=== PATIENT | female | born 1965 | race Caucasian/White ===

== ENCOUNTER 2018-08-28 11:23 | Emergency (ER) | payer OTHER ==
[2018-08-28 11:26] VITALS: BMI 32.3
[2018-08-28 11:36] VITALS: RESP 16; TEMP 98; O2SAT 98
--- NOTE | 2018-08-28 11:56 | C.PDOC ---
History Of Present Illness 52 yo female w/PMHx of IDDM come in for evaluation of Right eye floaters developed for past 2 weeks associated with intermittent headache. Pt denies severe headache, blurry vision, eye pain, redness, curtains falling, blind spots, denies dizziness, weakness, focal deficits, CP, SOB, dyspnea, diaphoresis, palpitation, abd. pain, V/D, weakness, sensory or vascular deficits to B/L UEs and LEs. Pt denies previous opht examination, wear glasses, no use of eye contacts. Ambulatory , not in any apparent distress. Time Seen by Provider: 08/28/18 11:29 Chief Complaint (Nursing): Eye Problem History Per: Patient Past Medical History Reviewed: Historical Data, Nursing Documentation, Vital Signs Vital Signs: Last Vital Signs Temp 98 F 08/28/18 11:35 Pulse 87 08/28/18 11:35 Resp 16 08/28/18 11:35 BP 157/83 H 08/28/18 11:35 Pulse Ox 98 08/28/18 11:35 - Medical History PMH: Diabetes, HTN Family History: States: No Known Family Hx - Social History Hx Tobacco Use: No Hx Alcohol Use: No Hx Substance Use: No - Immunization History Hx Tetanus Toxoid Vaccination: No Hx Influenza Vaccination: No Hx Pneumococcal Vaccination: No Review Of Systems Except As Marked, All Systems Reviewed And Found Negative. Constitutional: Negative for: Fever, Chills Eyes: Positive for: Vision Change. Negative for: Pain, Eyelid Inflammation, Redness ENT: Negative for: Ear Discharge, Nose Discharge Cardiovascular: Negative for: Chest Pain, Palpitations, Edema, Light Headedness Respiratory: Negative for: Cough, Shortness of Breath, Wheezing Gastrointestinal: Negative for: Nausea, Vomiting, Abdominal Pain, Diarrhea Genitourinary: Negative for: Dysuria, Incontinence Musculoskeletal: Negative for: Neck Pain, Back Pain Neurological: Positive for: Headache. Negative for: Weakness, Numbness, Altered Mental Status, Dizziness Physical Exam - Physical Exam Appears: Well, Non-toxic, No Acute Distress Skin: Normal Color, Warm, Dry, No Rash Head: Normacephalic Eye(s): bilateral: PERRL, EOMI (no pain or limitation on extraocular eye movement) Ear(s): Bilateral: Normal Nose: No Flaring, No Discharge Oral Mucosa: Moist Tongue: Normal Appearing Lips: Normal Appearing Throat: No Erythema, No Drooling Neck: Trachea Midline, Supple Cardiovascular: Rhythm Regular, No Murmur, No JVD Respiratory: No Decreased Breath Sounds, No Accessory Muscle Use, No Stridor, No Wheezing Gastrointestinal/Abdominal: Soft, No Tenderness, No Distention, No Guarding, No Rebound Extremity: Normal ROM, No Pedal Edema Neurological/Psych: Oriented x3, Normal Speech, Normal Cognition, Cerebellar Signs, Normal Motor, Normal Sensation, Normal Reflexes ED Course And Treatment O2 Sat by Pulse Oximetry: 98 Pulse Ox Interpretation: Normal - CT Scan/US CT head w/o contrast Other Rad Studies (CT/US): Radiology Report Reviewed CT/US Interpretation: IMPRESSION: 1. No acute intracranial abnormality. If there is a persistent focal neurologic deficit and an ongoing clinical concern for acute infarction, an MRI of the brain without intravenous contrast would be a more sensitive modality for evaluation of hyperacute/acute ischemic infarction. 2. 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 3. Severe chronic microangiopathic changes and moderate age-related global parenchymal volume loss. Progress Note: Pt was OBS in ED for 2 hours and reamined stable. On re-eval, pt is afebrile, hemodynamicaly stable. non-toxic. Neurologicaly intact. Imagings review and appears without acute abnormalities. Case discussed with [id number] and appoitment for NOW scheduled for re-eval at clinic. results review with patient, agrees with plan to F/U with now. case discusse [facility] , agrees with plan. Disposition Counseled Patient/Family Regarding: Studies Performed, Diagnosis, Need For Followup - Disposition Referrals: Lang Walsh [Staff Provider] - Disposition: HOME/ ROUTINE Disposition Time: 13:10 Condition: STABLE Additional Instructions: Follow up with senior clerk NOW for re-evaluation Instructions: Diabetic Retinopathy, Floaters in the Eye Forms: [employer] (Omani) - Clinical Impression Clinical Impression: Vitreous floaters of right eye, Diabetes
--- NOTE | 2018-08-28 12:55 | CT ---
Date of service: 08/28/2018 PROCEDURE: CT HEAD WITHOUT CONTRAST. HISTORY: Right eye pain, floaters COMPARISON: None available. TECHNIQUE: Axial computed tomography images were obtained through the head/brain without intravenous contrast. Radiation dose: Total exam DLP = 1125.27 mGy-cm. This CT exam was performed using one or more of the following dose reduction techniques: Automated exposure control, adjustment of the mA and/or kV according to patient size, and/or use of iterative reconstruction technique. FINDINGS: HEMORRHAGE: No acute parenchymal, subarachnoid or extra-axial hemorrhage.. BRAIN: No mass effect or edema. No significant chronic microvascular ischemic changes. Mild age-appropriate volume loss. VENTRICLES: Unremarkable. No hydrocephalus. CALVARIUM: Unremarkable. PARANASAL SINUSES: Frontal sinuses are atretic.. Remaining visualized paranasal sinuses are well-developed. No evidence of to suggest acute sinusitis... MASTOID AIR CELLS: Unremarkable as visualized. No inflammatory changes. OTHER FINDINGS: None. IMPRESSION: No acute intracranial hemorrhage.
[2018-08-28 13:51] VITALS: BP 142/85; PULSE 78
== END 2018-08-28 13:50 | disposition home or self-care (01) ==
LOC: C.ER 11:23
DX: H43.391 Other vitreous opacities, right eye (principal); E11.9 Type 2 diabetes mellitus without complications; Z79.4 Long term (current) use of insulin

== ENCOUNTER 2018-11-28 13:04 | Outpatient (CLI) | payer OTHER | END 2018-11-28 13:05 | disposition home or self-care (01) | LOC: C.MAMMO 13:04 | DX: Z12.31 Encounter for screening mammogram for malignant neoplasm of breast (principal) ==

== ENCOUNTER 2018-11-28 14:04 | Emergency (ER) | payer OTHER ==
[2018-11-28 14:04] VITALS: BMI 32.3
[2018-11-28 14:32] VITALS: BP 140/92; PULSE 85; RESP 18; TEMP 98.5; O2SAT 99
--- NOTE | 2018-11-28 14:48 | C.PDOC ---
History Of Present Illness 53 y/o female pt presents to the ER requesting an evaluation of her injured left foot that occurred 2 weeks ago. Pt notes she was walking when she twisted her ankle. Pt notes she takes tylenol and ice her ankle to help with the pain, but pain has now worsen. Pain is worse with movement and feels like something is biting her. Pt denies head injury, LOC, numbness, and tingling. Denies fever or chills. No other complaints at this time. Time Seen by Provider: 11/28/18 14:35 Chief Complaint (Nursing): Lower Extremity Problem/Injury History Per: Patient History/Exam Limitations: no limitations Onset/Duration Of Symptoms: Days (14) Current Symptoms Are (Timing): Still Present Past Medical History Reviewed: Historical Data, Nursing Documentation, Vital Signs Vital Signs: Last Vital Signs Temp 98.5 F 11/28/18 14:27 Pulse 85 11/28/18 14:27 Resp 18 11/28/18 14:27 BP 140/92 H 11/28/18 14:27 Pulse Ox 99 11/28/18 14:27 Primary Care Provider: Elisabeth Mccormack - Medical History PMH: Diabetes, HTN, Hypercholesterolemia Family History: States: No Known Family Hx - Social History Hx Tobacco Use: No Hx Alcohol Use: No Hx Substance Use: No - Immunization History Hx Tetanus Toxoid Vaccination: No Hx Influenza Vaccination: No Hx Pneumococcal Vaccination: No Review Of Systems Except As Marked, All Systems Reviewed And Found Negative. Constitutional: Negative for: Other (head injury ) Musculoskeletal: Positive for: Foot Pain (left; pain and swelling ) Neurological: Negative for: Other (LOC ) Physical Exam - Physical Exam Appears: Non-toxic, No Acute Distress Skin: Normal Color Head: Atraumatic, Normacephalic Eye(s): bilateral: Normal Inspection Nose: Normal Oral Mucosa: Moist Neck: Normal ROM Chest: Symmetrical Back: No Decreased ROM Extremity: No Normal ROM (limited ROM of the left ankle due to pain, remainder of the LLE has FROM.), Tenderness (to the middle of the left foot over the 3rd and 4th metatarsal; no tenderness to the left knee, ankle, or toes. ), No Pedal Edema, No Calf Tenderness, Capillary Refill (<2 sec), No Deformity, Swelling (dorsal aspect of the left foot ) Extremity: Bilateral: Normal Color And Temperature Pulses: Left Dorsalis Pedis: Normal Neurological/Psych: Oriented x3, Normal Speech, Normal Cognition, Normal Motor, Normal Sensation ED Course And Treatment O2 Sat by Pulse Oximetry: 99 (RA) Pulse Ox Interpretation: Normal - Other Rad Xray left foot X-Ray: Interpreted by Me Interpretation: No fracture or dislocation xray left foot X-Ray: Read By Radiologist Interpretation: Accession No. : [id number]. Patient Name / ID : ERNESTINA HARKINS / [id number]. Exam Date : 11/28/2018 15:01:12 ( Approved ). Study Comment : Sex / Age : F / 53Y. Creator : Ashly Moran MD. Dictator : Ashly Moran MD. Bottom Sander : Senior Manager Quality Assurance : Ashly Moran MD. Approver2 : Report Date : 11/28/2018 15:44:33. My Comment : . PROCEDURE: Left Foot Radiographs. Three views. HISTORY: foot injury pain. COMPARISON: None available. FINDINGS: BONES: No acute displaced fracture. JOINTS: No dislocation. SOFT TISSUES: Soft tissue swelling. No evidence of radiopaque foreign body. OTHER FINDINGS: None. IMPRESSION: Soft tissue swelling. No acute displaced fracture, dislocation, or significant joint effusion identified. If symptoms persist, or if there is continued clinical concern, x-ray follow-up in 7-10 days should be considered. Medical Decision Making Medical Decision Making: Plans: -- left foot XR Xray negative for fracture. Will treat for sprain. ED RN applied jamarcus wrap and ankle splint. Advised on elevating and icing the extremity. Will limit walking. Due to length of time patient has had discomfort, advised patient to follow-up closely with her PMD and an orthopedist for further evaluation and management of her injury to the LLE. Disposition Counseled Patient/Family Regarding: Studies Performed, Diagnosis, Need For Followup - Disposition Referrals: Nery Washington MD [Staff Provider] - Elisabeth Mccormack MD [Staff Provider] - Disposition: HOME/ ROUTINE Disposition Time: 15:54 Condition: GOOD Additional Instructions: Follow-up with your PMD and orthopedist. Ice and elevate your foot. Wear splint. Limit walking. Return if symptoms worsen or persist. Instructions: Foot Sprain (DC) Forms: [facility] (Estonian), General Discharge Instructions Print Language: PALAUAN - Clinical Impression Clinical Impression: Sprain of foot - PA / MUSICAL INSTRUMENT SUPERVISOR / Resident Statement MD/DO has reviewed & agrees with the documentation as recorded. - Scribe Statement The provider has reviewed the documentation as recorded by the Scarlet Daley Do All medical record entries made by the Scribe were at my direction and personally dictated by me. I have reviewed the chart and agree that the record accurately reflects my personal performance of the history, physical exam, medical decision making, and the department course for this patient. I have also personally directed, reviewed, and agree with the discharge instructions and disposition.
--- NOTE | 2018-11-28 15:48 | RAD ---
PROCEDURE: Left Foot Radiographs. Three views. HISTORY: foot injury pain COMPARISON: None available. FINDINGS: BONES: No acute displaced fracture. JOINTS: No dislocation. SOFT TISSUES: Soft tissue swelling. No evidence of radiopaque foreign body. OTHER FINDINGS: None. IMPRESSION: Soft tissue swelling. No acute displaced fracture, dislocation, or significant joint effusion identified. If symptoms persist, or if there is continued clinical concern, x-ray follow-up in 7-10 days should be considered.
== END 2018-11-28 16:22 | disposition home or self-care (01) ==
LOC: C.ER 14:04
DX: S93.602A Unspecified sprain of left foot, initial encounter (principal); X50.9XXA Other and unspecified overexertion or strenuous movements or postures, initial encounter; Y93.01 Activity, walking, marching and hiking